=== PATIENT | female | born 2000 | race African-American/Black ===

== ENCOUNTER 2022-07-29 18:56 | Emergency (ER) | payer MEDICAID ==
[~2022-07-29] VITALS: Ht 170.2 cm; Wt 62.0 kg
[2022-07-29 18:59] VITALS: BP 134/86
[2022-07-29] MEDS ORDERED: ACETAMINOPHEN 325MG TABLET PO ONE (20:45)
== END 2022-07-29 21:36 | disposition home or self-care (01) ==
LOC: ER 18:56
DX: M25.562 Pain in left knee (principal); M25.552 Pain in left hip
CPT/HCPCS: 73502; 73560; 81025; 99284; L1830; Z7610